=== PATIENT | male | born 1960 | race Caucasian/White ===

== ENCOUNTER 2019-03-24 12:14 | Emergency (ER) | payer OTHER ==
[~2019-03-24] VITALS: Ht 177.8 cm; Wt 88.2 kg
[2019-03-24] MEDS ORDERED: TUMS500C PO (12:28)
[2019-03-24] MEDS ORDERED: SM G150T PO (12:32)
[2019-03-24] MEDS ORDERED: beet root (12:32)
[2019-03-24] MEDS ORDERED: VITAD1000T PO (12:32)
[2019-03-24] MEDS ORDERED: MULTTAB77 PO (12:32)
[2019-03-24] MEDS ORDERED: MORPHINE 2 MG/ML 1ML SYRINGE (J2270) IV PRN (13:00)
[2019-03-24] MEDS ORDERED: GI COCKTAIL 50ML BTL(HYOSCYAMINE/MAALOX/LIDOCAINE VISCOUS)(1:3:1) PO ONE (13:00)
[2019-03-24] MEDS ORDERED: ASPIRIN 81 MG CHEW TABLET PO ONE (13:00)
[2019-03-24 13:09] LABS: BASO # 0.1 10^3/uL (0.0-0.2); BASO % 1.3 % (0.0-1.0); EOS # 0.1 10^3/uL (0.0-0.50); EOS % 2.9 % (0.0-3.0); HEMATOCRIT 41.9 % (42.0-52.0); HEMOGLOBIN 14.2 g/dl (13.5-17.5); LYMPH # 1.3 10^3/uL (1.5-4.5); LYMPH % 27.3 % (24.0-44.0); MEAN CORPUSCULAR HEMOGLOBIN 29.7 pg (27.0-33.0); MEAN CORPUSCULAR HGB CONC 33.9 g/dl (32.0-36.5); MEAN CORPUSCULAR VOLUME 87.7 fl (80.0-96.0); MONO # 0.5 10^3/uL (0.0-0.8); MONO % 10.9 % (0.0-5.0); NEUTROPHILS # 2.7 10^3/uL (1.8-7.7); NEUTROPHILS % 57.2 % (36.0-66.0); PLATELET COUNT, AUTOMATED 205 10^3/uL (150-450); RED BLOOD COUNT 4.78 10^6/uL (4.30-6.10); WHITE BLOOD COUNT 4.8 10^3/uL (4.0-10.0)
[2019-03-24 13:19] LABS: INR 1.12; PROTHROMBIN TIME 14.6 SECONDS (12.1-14.4)
[2019-03-24 13:20] LABS: PARTIAL THROMBOPLASTIN TIME 27.6 SECONDS (25.4-37.6)
[2019-03-24 13:53] LABS: ALBUMIN 3.6 GM/DL (3.2-5.2); ALT/SGPT 27 U/L (12-78); BILIRUBIN,DIRECT 0.1 MG/DL (0.0-0.2); BILIRUBIN,TOTAL 0.6 MG/DL (0.2-1.0); BLOOD UREA NITROGEN 18 MG/DL (7-18); C REACTIVE PROTEIN QUANTITATIV < 0.30 MG/DL (0.00-0.30); CALCIUM LEVEL 8.8 MG/DL (8.5-10.1); CARBON DIOXIDE LEVEL 30 MEQ/L (21-32); CHLORIDE LEVEL 107 MEQ/L (98-107); CPK CREATINE PHOSPHOKINASE 125 U/L (39-308); GLOMERULAR FILTRATION RATE > 60.0 (>56); GLUCOSE, FASTING 82 MG/DL (70-100); LIPASE 159 U/L (73-393); NT-PRO BNP 97 PG/ML (<125); SODIUM LEVEL 141 MEQ/L (136-145); TOTAL PROTEIN 6.8 GM/DL (6.4-8.2); TROPONIN I < 0.02 NG/ML (< 0.10)
--- NOTE | 2019-03-24 13:56 | REP ---
HISTORY: Chest pain. FINDINGS: The superior mediastinal structures are midline. The cardiac silhouette is unremarkable in size, shape and position. The diaphragmatic surfaces of the lungs are regular and the costophrenic angles are clear. The pulmonary galindo are clear. The imaged osseous structures are intact. IMPRESSION: There is no acute cardiopulmonary disease. Electronically Signed by Roni Callejas DO 03/24/2019 02:30 P
[2019-03-24 14:17] LABS: D-DIMER QUANT < 270.0 ng/ml (<500)
[2019-03-24] MEDS ORDERED: ISOVUE-370 76% 100ML VIAL (Q9967) As Ordered ONE (14:36)
[2019-03-24] MEDS ORDERED: KETOROLAC 30 MG/ML VIAL (J1885) IV ONE (14:45)
[2019-03-24] MEDS ORDERED: PRIL20TA2 PO (14:54)
[2019-03-24] MEDS ORDERED: SUCR1TA PO (14:54)
[2019-03-24] MEDS ORDERED: IBUP-1114 PO (14:56)
[2019-03-24] MEDS ORDERED: ASPI81CH33 PO (14:56)
[2019-03-24 15:35] LABS: CPK CREATINE PHOSPHOKINASE 109 U/L (39-308); MB/CK RELATIVE INDEX 1.65 (< OR =4); TROPONIN I < 0.02 NG/ML (< 0.10)
[2019-03-24 15:46] VITALS: BP 151/96
--- NOTE | 2019-03-24 21:30 | ECGEPIP ---
Stationary ECG Study [facility] - ED Test Date: 2019-03-24 Pat Name: SHELBY OSMAN Department: Room: - Gender: M Authorization Coordinator: NORMA : 1960 Requested By: BONILLA Obrien Order Number: [id number] Reading MD: Hannah Medina Measurements Intervals [place] Rate: 72 P: 51 IN: 210 QRS: 7 QRSD: 111 T: 8 QT: 385 QTc: 422 Interpretive Statements SINUS RHYTHM WITH FIRST DEGREE AV BLOCK MODERATE INTRAVENTRICULAR CONDUCTION DELAY NSTTW ABNORMALITY NO PRIOR FOR COMPARISON Electronically Signed On 03-24-2019 21:29:41 EDT by Hannah Medina
--- NOTE | 2019-03-24 21:32 | ECGEPIP ---
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
--- NOTE | 2019-03-25 07:17 | REP ---
REASON: Chest pain and dyspnea. There are no prior CT angio chest for comparison, however standard contrast enhanced chest of 01/08/2013 was reviewed. CONTRAST: 100 mL Isovue-370. There is excellent visualization of the pulmonary arterial vasculature. There are no focal filling defects present that would be considered consistent with pulmonary emboli. The mediastinum and pulmonary myranda are unchanged from the prior exam. There is no evidence of a mass or adenopathy. There are no pleural or pericardial effusions. Although seen in a limited fashion, the thoracic aorta is within normal limits and unchanged. There is no change in the appearance of the imaged upper abdomen of imaged osseous structures. Once again, there are multiple nonobstructing left nephroliths. Evaluation of the lung galindo show no significant changes from the prior exam. Dependent subsegmental atelectatic change is noted status quo. IMPRESSION:Stable chronic changes without evidence of acute disease. Findings as described above. Electronically Signed by Roni Callejas DO 03/25/2019 08:37 A
== END 2019-03-24 16:05 | disposition home or self-care (01) ==
LOC: M ED 12:14
DX: K21.0 Gastro-esophageal reflux disease with esophagitis (principal); I10 Essential (primary) hypertension; Z79.899 Other long term (current) drug therapy; Z79.82 Long term (current) use of aspirin
CPT/HCPCS: 36415; 71046; 71275; 80048; 80076; 82550; 82553; 83690; 83880; 84443; 84484; 85025; 85379; 85610; 85730; 86140; 93005; 93041; 94760; 96374; 99285; J1885; Q9967

== ENCOUNTER 2024-10-12 20:35 | Emergency (ER) | payer OTHER ==
[~2024-10-12] VITALS: Ht 177.8 cm; Wt 96.4 kg
[~2024-10-12 20:35] MED LIST: ASPI81CH33 PO; CHOL100029 PO; IBUP-1114 PO; MULTTAB77 PO; PRIL20TA2 PO; SM G150T PO; SUCR1TA PO; TUMS500C PO; beet root
[2024-10-12 21:01] LABS: BASO # 0.1 10^3/uL (0.0-0.2); BASO % 0.9 % (0.0-1.0); EOS # 0.2 10^3/uL (0.0-0.5); EOS % 2.7 % (0.0-3.0); HEMATOCRIT 40.6 % (42.0-52.0); HEMOGLOBIN 13.9 g/dl (13.5-17.5); LYMPH # 1.7 10^3/uL (1.5-5.0); MEAN CORPUSCULAR HEMOGLOBIN 29.6 pg (27.0-33.0); MEAN CORPUSCULAR HGB CONC 34.2 g/dl (32.0-36.5); MEAN CORPUSCULAR VOLUME 86.4 fl (80.0-96.0); MONO # 0.6 10^3/uL (0.0-0.8); MONO % 7.7 % (2.0-8.0); NEUTROPHILS # 4.8 10^3/uL (1.5-8.5); NEUTROPHILS % 65.4 % (36.0-66.0); PLATELET COUNT, AUTOMATED 259 10^3/uL (150-450); WHITE BLOOD COUNT 7.4 10^3/uL (4.0-10.0)
[2024-10-12 21:24] LABS: CK-MB VALUE MASS 1.5 NG/ML (<3.6)
[2024-10-12 21:26] LABS: BLOOD UREA NITROGEN 21 MG/DL (9-23); CALCIUM LEVEL 9.4 MG/DL (8.3-10.6); CARBON DIOXIDE LEVEL 28 MMOL/L (20-31); CHLORIDE LEVEL 107 MMOL/L (98-107); CPK CREATINE PHOSPHOKINASE 125 U/L (46-171); CREATININE FOR GFR 0.74 MG/DL (0.70-1.30); GLOMERULAR FILTRATION RATE > 60.0 (>49); GLUCOSE, FASTING 176 MG/DL (74-106); POTASSIUM SERUM 3.6 MMOL/L (3.5-5.1); SODIUM LEVEL 142 MMOL/L (136-145)
[2024-10-12] MEDS ORDERED: ISOVUE-370 76% 100ML VIAL As Ordered ONE (22:10)
[2024-10-12 22:46] LABS: CK-MB VALUE MASS 1.6 NG/ML (<3.6)
[2024-10-12 22:53] LABS: MB/CK RELATIVE INDEX 1.35 (< OR =4)
[2024-10-13 00:43] LABS: CK-MB VALUE MASS 1.3 NG/ML (<3.6)
[2024-10-13 00:52] LABS: MB/CK RELATIVE INDEX 1.2 (< OR =4)
[2024-10-13] MEDS ORDERED: HEPARIN SOD (PORCINE) 5000UNITS/ML 1ML VIAL/SYRINGE IV PRN (01:20)
[2024-10-13] MEDS: HEPARIN DRIP 25,000 UNITS in IV 1 EA IV SCH (01:26)
[2024-10-13] MEDS: HEPARIN SOD (PORCINE) 5000UNITS/ML 1ML VIAL/SYRINGE IV ONE (01:29)
[2024-10-13 01:52] LABS: HEMATOCRIT 40.1 % (42.0-52.0); HEMOGLOBIN 13.7 g/dl (13.5-17.5); MEAN CORPUSCULAR HEMOGLOBIN 30.3 pg (27.0-33.0); MEAN CORPUSCULAR HGB CONC 34.2 g/dl (32.0-36.5); MEAN CORPUSCULAR VOLUME 88.7 fl (80.0-96.0); PLATELET COUNT, AUTOMATED 256 10^3/uL (150-450); RED BLOOD COUNT 4.52 10^6/uL (4.30-6.10); WHITE BLOOD COUNT 6.9 10^3/uL (4.0-10.0)
[2024-10-13 07:00] VITALS: O2SAT 98
[2024-10-13 07:10] VITALS: BP 181/96; TEMP 97.3
[2024-10-13 07:33] VITALS: BP 168/105
[2024-10-13] MEDS: LOSARTAN 50MG TABLET PO ONE (07:33)
== END 2024-10-13 07:16 | disposition short-term general hospital (02) ==
LOC: M ED 20:35 → EDBD 20:35 → M ED 10-13 07:16
DX: I21.4 Non-ST elevation (NSTEMI) myocardial infarction (principal); I44.0 Atrioventricular block, first degree; K21.9 Gastro-esophageal reflux disease without esophagitis; F10.10 Alcohol abuse, uncomplicated; Z79.1 Long term (current) use of non-steroidal anti-inflammatories (NSAID); Z79.810 Long term (current) use of selective estrogen receptor modulators (SERMs); Z79.899 Other long term (current) drug therapy
CPT/HCPCS: 71045; 71275; 80048; 82550; 82553; 84484; 85025; 85027; 85730; 87486; 87581; 87633; 87798; 93005; 93041; 94760; 96365; 96366; 96375; 99285; Q9967

== ENCOUNTER → 2025-03-20 | Outpatient (CLI) | payer OTHER | LOC: M WUC 10:37 | PROVIDERS: ATTEND Nurse Practitioner Family | DX: S62.319A Displaced fracture of base of unspecified metacarpal bone, initial encounter for closed fracture (principal); W18.30XA Fall on same level, unspecified, initial encounter; Y92.009 Unspecified place in unspecified non-institutional (private) residence as the place of occurrence of the external cause ==

== ENCOUNTER → 2025-04-21 | Outpatient (CLI) | payer OTHER | LOC: M PLAIMG 11:31 | PROVIDERS: ATTEND Physician Assistant | DX: S62.312D Displaced fracture of base of third metacarpal bone, right hand, subsequent encounter for fracture with routine healing (principal); M25.441 Effusion, right hand; S60.221D Contusion of right hand, subsequent encounter; W18.30XD Fall on same level, unspecified, subsequent encounter ==